=== PATIENT | female | born 1945 | race Asian ===

== ENCOUNTER 2020-09-12 10:14 | Inpatient (IN) | payer MEDICARE, MEDICAID ==
[~2020-09-12] VITALS: Ht 157.5 cm; Wt 56.7 kg
[~2020-09-12 10:14] MED LIST: MTV PO; VIT E PO; [UNRECOGNIZED DRUG - REMARK] PO
[2020-09-12 14:01] LABS: BASOPHILS % (AUTO) 0.9 % (0.0-2.0); EOSINOPHILS % (AUTO) 12.5 % (1.0-6.0); HEMATOCRIT 44.5 % (36-46); HEMOGLOBIN 15.4 g/dL (12.0-16.0); LYMPHOCYTES # (AUTO) 2.8 K/uL (1.0-4.8); LYMPHOCYTES % (AUTO) 34.7 % (22.0-44.0); MEAN CORPUSCULAR HEMOGLOBIN 32.9 pg (26.0-34.0); MEAN CORPUSCULAR HGB CONC 34.6 G/dL (31.0-37.0); MEAN CORPUSCULAR VOLUME 95 fL (80-100); MONOCYTES # (AUTO) 0.4 K/uL (0.1-1.0); MONOCYTES % (AUTO) 4.9 % (2.0-9.0); NEUTROPHILS # (AUTO) 3.8 K/uL (1.8-7.7); PLATELET COUNT (AUTO) 295 K/uL (150-450); RED BLOOD CELL COUNT(AUTO) 4.68 MIL/uL (4.00-5.20); RED CELL DISTRIBUTION WIDTH 12.5 % (11.5-14.5)
[2020-09-12 14:12] LABS: ANION GAP 7 mmol/L (8-16); CALCIUM, TOTAL 9.9 mg/dL (8.8-10.5); CARBON DIOXIDE 29 mmol/L (22-29); CHLORIDE 104 mmol/L (98-107); CREATININE 0.84 mg/dL (0.60-1.30); GLUCOSE,RANDOM 97 mg/dL (70-110); POTASSIUM 3.7 mmol/L (3.5-5.1); SODIUM SERUM 140 mmol/L (136-145); UREA NITROGEN, BLOOD 7 mg/dL (7-18)
[2020-09-12 14:13] LABS: GLOMERULAR FILTR. RATE CALC > 60 mL/min (>60)
[2020-09-12 14:17] LABS: ALANINE AMINOTRANSFERASE 35 U/L (12-78); ALBUMIN 4.3 g/dL (3.4-5.0); ALKALINE PHOSPHATASE 95 U/L (46-116); ASPARTATE AMINOTRANSFERASE 30 U/L (15-37); BILIRUBIN,TOTAL 0.8 mg/dL (0.1-1.0); TOTAL PROTEIN, SERUM 8.2 g/dL (6.4-8.2)
[2020-09-12] MEDS ORDERED: MAG HYDROX/AL HYDROX/SIMETH ES 30 ML SUSPENSION UDCUP PO PRN (15:30)
[2020-09-12] MEDS ORDERED: LOPERAMIDE HCL 2 MG CAPSULE PO PRN (15:30)
[2020-09-12] MEDS ORDERED: HydrOXYzine PAMOATE 50 MG CAPSULE PO PRN (15:30)
[2020-09-12] MEDS ORDERED: MAGNESIUM HYDROXIDE SUSPENSION 30 ML UDCUP PO PRN (15:30)
[2020-09-12] MEDS ORDERED: TUBERCULIN, PURIFIED PROTEIN DERIVATIVE 5 TU/0.1 ML SYRINGE ID ONE (15:30)
[2020-09-12] MEDS ORDERED: GuaiFENesin/D-METHORPHAN [SUGAR-FREE] 200-20MG/10 ML SYRUP UDCUP PO PRN (15:30)
[2020-09-12] MEDS ORDERED: PALIPERIDONE 1.5 MG ER TABLET PO PRN (15:30)
[2020-09-12] MEDS ORDERED: CYANOCOBALAMIN 1,000 MCG/ML VIAL IM ONE (15:30)
[2020-09-12] MEDS ORDERED: ACETAMINOPHEN 325 MG TABLET PO PRN (15:30)
[2020-09-12] MEDS ORDERED: ZOLPIDEM TARTRATE 10 MG TABLET PO PRN (15:30)
[2020-09-12] MEDS ORDERED: PROMETHAZINE HCL 25 MG TABLET PO PRN (15:30)
[2020-09-12] MEDS ORDERED: LORazepam 2 MG TABLET PO PRN (15:30)
[2020-09-12] MEDS ORDERED: PALIPERIDONE PALMITATE 234 MG/1.5 ML SYRINGE IM ONE (16:00)
[2020-09-12 16:03] LABS: COVID AG,FIA SOURCE NASAL SWAB
[2020-09-12] MEDS: PALIPERIDONE 3 MG ER TABLET PO SCH (21:00)
[2020-09-13 08:00] VITALS: BP 150/83
[2020-09-13 08:09] LABS: HEMOGLOBIN A1C 5.9 % (3.8-5.6)
[2020-09-13 08:17] LABS: CHOL/HDL RATIO 2.6 (3.9-5.7); FREE T4 (FREE THYROXINE) 1.36 ng/dL (0.76-1.46); THYROID STIMULATING HORMONE 0.39 uIU/mL (0.36-3.74)
[2020-09-13] MEDS: THIAMINE 100 MG TABLET PO SCH ×2 (09:48→16:09)
[2020-09-13] MEDS: MULTIVITAMINS WITH MINERALS, THERAPEUTIC TABLET PO SCH (09:48)
[2020-09-13] MEDS: FOLIC ACID 1 MG TABLET PO SCH (09:48)
[2020-09-13] MEDS: OMEGA-3/DHA/EPA/FISH OIL 1,000 MG CAPSULE PO SCH (09:48)
[2020-09-13] MEDS ORDERED: INFLUENZA VIRUS VACCINE QVS 2020-21 (6MO+)/PF 60 MCG/0.5 ML SYRINGE IM ONE (10:15)
[2020-09-13] MEDS ORDERED: PNEUMOCOCCAL VACCINE POLYVALENT 0.5 ML VIAL [PPSV23] IM ONE (10:15)
[2020-09-13 16:35] VITALS: BP 144/98
[2020-09-13] MEDS: PALIPERIDONE 3 MG ER TABLET PO SCH (20:12)
[2020-09-13] MEDS: MIRTAZAPINE 15 MG TABLET PO SCH (21:00)
[2020-09-14] MEDS: LURASIDONE HCL 20 MG TABLET PO SCH (06:37)
[2020-09-14 08:00] VITALS: BP 136/70
[2020-09-14] MEDS: THIAMINE 100 MG TABLET PO SCH ×2 (08:34→16:05)
[2020-09-14] MEDS: OMEGA-3/DHA/EPA/FISH OIL 1,000 MG CAPSULE PO SCH (08:34)
[2020-09-14] MEDS: FOLIC ACID 1 MG TABLET PO SCH (08:34)
[2020-09-14] MEDS: VALPROIC ACID 250 MG/5 ML SYRUP UDCUP PO SCH ×3 (08:34→16:05)
[2020-09-14] MEDS: MULTIVITAMINS WITH MINERALS, THERAPEUTIC TABLET PO SCH (08:34)
[2020-09-14] MEDS ORDERED: DEXTROSE 50%-WATER 25 GM/50 ML SYRINGE IVP PRN (14:15)
[2020-09-14 14:30] LABS: GLUCOMETER DEV NAME(LOC) 3E.C; GLUCOSE,POINT OF CARE 113 MG/DL (70-110)
[2020-09-14] MEDS: HYDROCHLOROTHIAZIDE 25 MG TABLET PO SCH (14:39)
[2020-09-14] MEDS: CLOPIDOGREL BISULFATE 75 MG TABLET PO SCH (14:40)
[2020-09-14 16:21] LABS: GLUCOMETER DEV NAME(LOC) 3E.C; GLUCOSE,POINT OF CARE 147 MG/DL (70-110)
[2020-09-14 16:24] VITALS: BP 128/76
[2020-09-14] MEDS: INSULIN LISPRO 100 UNITS/ML SQ PRN (16:51)
[2020-09-14] MEDS: MIRTAZAPINE 15 MG TABLET PO SCH (20:29)
[2020-09-14] MEDS: ATORVASTATIN CALCIUM 40 MG TABLET PO SCH (20:29)
[2020-09-14 20:45] LABS: GLUCOMETER DEV NAME(LOC) 3E.C; GLUCOSE,POINT OF CARE 115 MG/DL (70-110)
[2020-09-15 05:48] LABS: GLUCOMETER DEV NAME(LOC) 3E.I 2; GLUCOSE,POINT OF CARE 103 MG/DL (70-110)
[2020-09-15] MEDS: LURASIDONE HCL 20 MG TABLET PO SCH (06:38)
[2020-09-15 08:00] VITALS: BP 138/64
[2020-09-15] MEDS ORDERED: SitaGLIPtin PHOSPHATE 100 MG TABLET PO SCH (09:00)
[2020-09-15] MEDS ORDERED: FOLIC ACID 1 MG TABLET PO SCH (09:00)
[2020-09-15] MEDS: VALPROIC ACID 250 MG/5 ML SYRUP UDCUP PO SCH ×3 (10:40→16:39)
[2020-09-15] MEDS: HYDROCHLOROTHIAZIDE 25 MG TABLET PO SCH (10:41)
[2020-09-15] MEDS: LOSARTAN POTASSIUM 50 MG TABLET PO SCH (10:41)
[2020-09-15] MEDS: MULTIVITAMINS WITH MINERALS, THERAPEUTIC TABLET PO SCH (10:42)
[2020-09-15] MEDS: FOLIC ACID 1 MG TABLET PO SCH (10:42)
[2020-09-15] MEDS: OMEGA-3/DHA/EPA/FISH OIL 1,000 MG CAPSULE PO SCH (10:42)
[2020-09-15] MEDS: ASPIRIN 81 MG DR TABLET PO SCH (10:42)
[2020-09-15] MEDS: ERGOCALCIFEROL (VIT D2) 50,000 UNITS [1,250 MCG] CAPSULE PO SCH (10:43)
[2020-09-15] MEDS: THIAMINE 100 MG TABLET PO SCH ×2 (10:43→16:39)
[2020-09-15] MEDS: FUROSEMIDE 20 MG TABLET PO SCH (10:47)
[2020-09-15] MEDS: CLOPIDOGREL BISULFATE 75 MG TABLET PO SCH (10:48)
[2020-09-15 13:36] LABS: GLUCOMETER DEV NAME(LOC) 3E.I 2; GLUCOSE,POINT OF CARE 129 MG/DL (70-110)
[2020-09-15 16:10] VITALS: BP 100/58
[2020-09-15] MEDS: INSULIN LISPRO 100 UNITS/ML SQ PRN (17:14)
[2020-09-15] MEDS: MIRTAZAPINE 15 MG TABLET PO SCH (21:19)
[2020-09-15] MEDS: ATORVASTATIN CALCIUM 40 MG TABLET PO SCH (21:19)
[2020-09-15 21:36] LABS: GLUCOMETER DEV NAME(LOC) 3E.I 2; GLUCOSE,POINT OF CARE 129 MG/DL (70-110)
[2020-09-15 21:36] LABS: GLUCOMETER DEV NAME(LOC) 3E.I 2; GLUCOSE,POINT OF CARE 163 MG/DL (70-110)
[2020-09-16 05:45] LABS: GLUCOMETER DEV NAME(LOC) 3E.I 2; GLUCOSE,POINT OF CARE 97 MG/DL (70-110)
[2020-09-16] MEDS: LURASIDONE HCL 20 MG TABLET PO SCH (07:04)
[2020-09-16 09:00] VITALS: BP 107/81
[2020-09-16] MEDS ORDERED: PALIPERIDONE PALMITATE 156 MG/ML SYRINGE IM ONE (09:00)
[2020-09-16] MEDS: OMEGA-3/DHA/EPA/FISH OIL 1,000 MG CAPSULE PO SCH (10:30)
[2020-09-16] MEDS: MULTIVITAMINS WITH MINERALS, THERAPEUTIC TABLET PO SCH (10:30)
[2020-09-16] MEDS: LOSARTAN POTASSIUM 50 MG TABLET PO SCH (10:31)
[2020-09-16] MEDS: SitaGLIPtin PHOSPHATE 50 MG TABLET PO SCH (10:31)
[2020-09-16] MEDS: ASPIRIN 81 MG DR TABLET PO SCH (10:31)
[2020-09-16] MEDS: THIAMINE 100 MG TABLET PO SCH ×2 (10:31→16:59)
[2020-09-16] MEDS: FOLIC ACID 1 MG TABLET PO SCH (10:31)
[2020-09-16] MEDS: HYDROCHLOROTHIAZIDE 25 MG TABLET PO SCH (10:31)
[2020-09-16] MEDS: CLOPIDOGREL BISULFATE 75 MG TABLET PO SCH (10:32)
[2020-09-16] MEDS: FUROSEMIDE 20 MG TABLET PO SCH (10:32)
[2020-09-16] MEDS: VALPROIC ACID 250 MG/5 ML SYRUP UDCUP PO SCH ×3 (10:32→16:59)
[2020-09-16 11:55] LABS: GLUCOMETER DEV NAME(LOC) 3E.I 2; GLUCOSE,POINT OF CARE 115 MG/DL (70-110)
[2020-09-16 16:00] VITALS: BP 137/82
[2020-09-16 17:30] LABS: GLUCOMETER DEV NAME(LOC) 3E.I 2; GLUCOSE,POINT OF CARE 102 MG/DL (70-110)
[2020-09-16] MEDS: MIRTAZAPINE 15 MG TABLET PO SCH (21:02)
[2020-09-16] MEDS: ATORVASTATIN CALCIUM 40 MG TABLET PO SCH (21:02)
[2020-09-16 21:26] LABS: GLUCOMETER DEV NAME(LOC) 3E.I 2; GLUCOSE,POINT OF CARE 134 MG/DL (70-110)
[2020-09-17 06:03] LABS: GLUCOMETER DEV NAME(LOC) 3E.I 2; GLUCOSE,POINT OF CARE 114 MG/DL (70-110)
[2020-09-17] MEDS: LURASIDONE HCL 40 MG TABLET PO SCH (06:31)
[2020-09-17] MEDS: THIAMINE 100 MG TABLET PO SCH ×2 (09:27→16:31)
[2020-09-17] MEDS: VALPROIC ACID 250 MG/5 ML SYRUP UDCUP PO SCH ×3 (09:27→16:32)
[2020-09-17] MEDS: MULTIVITAMINS WITH MINERALS, THERAPEUTIC TABLET PO SCH (09:27)
[2020-09-17] MEDS: FUROSEMIDE 20 MG TABLET PO SCH (09:28)
[2020-09-17] MEDS: SitaGLIPtin PHOSPHATE 50 MG TABLET PO SCH (09:28)
[2020-09-17] MEDS: ASPIRIN 81 MG DR TABLET PO SCH (09:28)
[2020-09-17] MEDS: CLOPIDOGREL BISULFATE 75 MG TABLET PO SCH (09:28)
[2020-09-17] MEDS: FOLIC ACID 1 MG TABLET PO SCH (09:28)
[2020-09-17] MEDS: HYDROCHLOROTHIAZIDE 25 MG TABLET PO SCH (09:28)
[2020-09-17] MEDS: OMEGA-3/DHA/EPA/FISH OIL 1,000 MG CAPSULE PO SCH (09:28)
[2020-09-17] MEDS: LOSARTAN POTASSIUM 50 MG TABLET PO SCH (09:28)
[2020-09-17 10:40] VITALS: BP 130/78
[2020-09-17 12:15] LABS: GLUCOMETER DEV NAME(LOC) 3E.I 2; GLUCOSE,POINT OF CARE 119 MG/DL (70-110)
[2020-09-17 16:33] LABS: GLUCOMETER DEV NAME(LOC) 3E.I 2; GLUCOSE,POINT OF CARE 89 MG/DL (70-110)
[2020-09-17 17:58] VITALS: BP 105/64
[2020-09-17] MEDS: MIRTAZAPINE 15 MG TABLET PO SCH (20:31)
[2020-09-17] MEDS: ATORVASTATIN CALCIUM 40 MG TABLET PO SCH (20:31)
[2020-09-17 20:45] LABS: GLUCOMETER DEV NAME(LOC) 3E.I 2; GLUCOSE,POINT OF CARE 115 MG/DL (70-110)
[2020-09-18 05:46] LABS: GLUCOMETER DEV NAME(LOC) 3E.I 2; GLUCOSE,POINT OF CARE 136 MG/DL (70-110)
[2020-09-18] MEDS: LURASIDONE HCL 40 MG TABLET PO SCH (06:32)
[2020-09-18 09:02] VITALS: BP 118/79
[2020-09-18] MEDS: FOLIC ACID 1 MG TABLET PO SCH (10:21)
[2020-09-18] MEDS: MULTIVITAMINS WITH MINERALS, THERAPEUTIC TABLET PO SCH (10:21)
[2020-09-18] MEDS: FUROSEMIDE 20 MG TABLET PO SCH (10:21)
[2020-09-18] MEDS: OMEGA-3/DHA/EPA/FISH OIL 1,000 MG CAPSULE PO SCH (10:21)
[2020-09-18] MEDS: THIAMINE 100 MG TABLET PO SCH ×2 (10:22→17:02)
[2020-09-18] MEDS: ASPIRIN 81 MG DR TABLET PO SCH (10:22)
[2020-09-18] MEDS: HYDROCHLOROTHIAZIDE 25 MG TABLET PO SCH (10:22)
[2020-09-18] MEDS: LOSARTAN POTASSIUM 50 MG TABLET PO SCH (10:23)
[2020-09-18] MEDS: SitaGLIPtin PHOSPHATE 50 MG TABLET PO SCH (10:23)
[2020-09-18] MEDS: CLOPIDOGREL BISULFATE 75 MG TABLET PO SCH (10:24)
[2020-09-18] MEDS: VALPROIC ACID 250 MG/5 ML SYRUP UDCUP PO SCH ×3 (10:25→17:02)
[2020-09-18] MEDS: INSULIN LISPRO 100 UNITS/ML SQ PRN (11:37)
[2020-09-18 11:45] LABS: GLUCOMETER DEV NAME(LOC) 3E.I 2; GLUCOSE,POINT OF CARE 107 MG/DL (70-110)
[2020-09-18 16:00] VITALS: BP 97/59
[2020-09-18 17:01] LABS: GLUCOMETER DEV NAME(LOC) 3E.I 2; GLUCOSE,POINT OF CARE 116 MG/DL (70-110)
[2020-09-18] MEDS: ATORVASTATIN CALCIUM 40 MG TABLET PO SCH (20:19)
[2020-09-18] MEDS: MIRTAZAPINE 15 MG TABLET PO SCH (20:19)
[2020-09-18 22:02] LABS: GLUCOMETER DEV NAME(LOC) 3E.I 2; GLUCOSE,POINT OF CARE 116 MG/DL (70-110)
[2020-09-19 06:02] LABS: GLUCOMETER DEV NAME(LOC) 3E.I 2; GLUCOSE,POINT OF CARE 102 MG/DL (70-110)
[2020-09-19] MEDS: LURASIDONE HCL 40 MG TABLET PO SCH (06:52)
[2020-09-19 08:00] VITALS: BP 147/84
[2020-09-19] MEDS: ASPIRIN 81 MG DR TABLET PO SCH (09:11)
[2020-09-19] MEDS: FUROSEMIDE 20 MG TABLET PO SCH (09:11)
[2020-09-19] MEDS: SitaGLIPtin PHOSPHATE 25 MG TABLET PO SCH (09:11)
[2020-09-19] MEDS: MULTIVITAMINS WITH MINERALS, THERAPEUTIC TABLET PO SCH (09:11)
[2020-09-19] MEDS: OMEGA-3/DHA/EPA/FISH OIL 1,000 MG CAPSULE PO SCH (09:11)
[2020-09-19] MEDS: VALPROIC ACID 250 MG/5 ML SYRUP UDCUP PO SCH ×3 (09:11→16:32)
[2020-09-19] MEDS: CLOPIDOGREL BISULFATE 75 MG TABLET PO SCH (09:11)
[2020-09-19] MEDS: LOSARTAN POTASSIUM 25 MG TABLET PO SCH (09:11)
[2020-09-19] MEDS: THIAMINE 100 MG TABLET PO SCH ×2 (09:12→16:31)
[2020-09-19] MEDS: FOLIC ACID 1 MG TABLET PO SCH (09:18)
[2020-09-19 11:26] LABS: GLUCOMETER DEV NAME(LOC) 3E.I 2; GLUCOSE,POINT OF CARE 93 MG/DL (70-110)
[2020-09-19] MEDS: INSULIN LISPRO 100 UNITS/ML SQ PRN (12:49)
[2020-09-19 16:00] VITALS: BP 104/64
[2020-09-19] MEDS: MIRTAZAPINE 15 MG TABLET PO SCH (20:28)
[2020-09-19] MEDS: ATORVASTATIN CALCIUM 40 MG TABLET PO SCH (20:28)
[2020-09-19 20:46] LABS: GLUCOMETER DEV NAME(LOC) 3E.I 2; GLUCOSE,POINT OF CARE 133 MG/DL (70-110)
[2020-09-20 06:25] LABS: GLUCOMETER DEV NAME(LOC) 3E.I 2; GLUCOSE,POINT OF CARE 110 MG/DL (70-110)
[2020-09-20] MEDS: LURASIDONE HCL 60 MG TABLET PO SCH (07:03)
[2020-09-20 08:00] VITALS: BP 123/67
[2020-09-20] MEDS: THIAMINE 100 MG TABLET PO SCH ×2 (11:23→16:34)
[2020-09-20] MEDS: SitaGLIPtin PHOSPHATE 25 MG TABLET PO SCH (11:23)
[2020-09-20] MEDS: ASPIRIN 81 MG DR TABLET PO SCH (11:23)
[2020-09-20] MEDS: OMEGA-3/DHA/EPA/FISH OIL 1,000 MG CAPSULE PO SCH (11:23)
[2020-09-20] MEDS: FUROSEMIDE 20 MG TABLET PO SCH (11:23)
[2020-09-20] MEDS: VALPROIC ACID 250 MG/5 ML SYRUP UDCUP PO SCH ×3 (11:24→16:34)
[2020-09-20] MEDS: FOLIC ACID 1 MG TABLET PO SCH (11:24)
[2020-09-20] MEDS: MULTIVITAMINS WITH MINERALS, THERAPEUTIC TABLET PO SCH (11:24)
[2020-09-20] MEDS: LOSARTAN POTASSIUM 25 MG TABLET PO SCH (11:24)
[2020-09-20] MEDS: CLOPIDOGREL BISULFATE 75 MG TABLET PO SCH (11:24)
[2020-09-20 11:42] LABS: GLUCOMETER DEV NAME(LOC) 3E.I 2; GLUCOSE,POINT OF CARE 131 MG/DL (70-110)
[2020-09-20 16:00] VITALS: BP 105/68
[2020-09-20] MEDS: INSULIN LISPRO 100 UNITS/ML SQ PRN (16:50)
[2020-09-20 16:54] LABS: GLUCOMETER DEV NAME(LOC) 3E.I 2; GLUCOSE,POINT OF CARE 151 MG/DL (70-110)
[2020-09-20] MEDS: ATORVASTATIN CALCIUM 40 MG TABLET PO SCH (21:15)
[2020-09-20] MEDS: MIRTAZAPINE 15 MG TABLET PO SCH (21:16)
[2020-09-20 21:34] LABS: GLUCOMETER DEV NAME(LOC) 3E.I 2; GLUCOSE,POINT OF CARE 100 MG/DL (70-110)
[2020-09-21 00:37] VITALS: BP 141/84
[2020-09-21 05:23] LABS: GLUCOMETER DEV NAME(LOC) 3E.I 2; GLUCOSE,POINT OF CARE 86 MG/DL (70-110)
[2020-09-21] MEDS: LURASIDONE HCL 60 MG TABLET PO SCH (07:03)
[2020-09-21] MEDS: INSULIN LISPRO 100 UNITS/ML SQ PRN ×2 (07:30→11:24)
[2020-09-21 08:00] VITALS: BP 110/70
[2020-09-21] MEDS: MULTIVITAMINS WITH MINERALS, THERAPEUTIC TABLET PO SCH (08:29)
[2020-09-21] MEDS: OMEGA-3/DHA/EPA/FISH OIL 1,000 MG CAPSULE PO SCH (08:30)
[2020-09-21] MEDS: THIAMINE 100 MG TABLET PO SCH ×2 (08:30→16:38)
[2020-09-21] MEDS: ASPIRIN 81 MG DR TABLET PO SCH (08:30)
[2020-09-21] MEDS: FOLIC ACID 1 MG TABLET PO SCH (08:30)
[2020-09-21] MEDS: SitaGLIPtin PHOSPHATE 25 MG TABLET PO SCH (08:31)
[2020-09-21] MEDS: CLOPIDOGREL BISULFATE 75 MG TABLET PO SCH (08:31)
[2020-09-21] MEDS: FUROSEMIDE 20 MG TABLET PO SCH (08:31)
[2020-09-21] MEDS: LOSARTAN POTASSIUM 25 MG TABLET PO SCH (08:32)
[2020-09-21] MEDS: VALPROIC ACID 250 MG/5 ML SYRUP UDCUP PO SCH ×3 (08:33→16:38)
[2020-09-21 11:33] LABS: GLUCOMETER DEV NAME(LOC) 3E.I 2; GLUCOSE,POINT OF CARE 88 MG/DL (70-110)
[2020-09-21 16:54] LABS: GLUCOMETER DEV NAME(LOC) 3E.I 2; GLUCOSE,POINT OF CARE 137 MG/DL (70-110)
[2020-09-21 18:12] VITALS: BP 156/68
[2020-09-21] MEDS: ATORVASTATIN CALCIUM 40 MG TABLET PO SCH (20:49)
[2020-09-21] MEDS: MIRTAZAPINE 15 MG TABLET PO SCH (20:49)
[2020-09-21 21:18] LABS: GLUCOMETER DEV NAME(LOC) 3E.I 2; GLUCOSE,POINT OF CARE 112 MG/DL (70-110)
[2020-09-22 05:33] LABS: GLUCOMETER DEV NAME(LOC) 3E.I 2; GLUCOSE,POINT OF CARE 93 MG/DL (70-110)
[2020-09-22] MEDS: LURASIDONE HCL 80 MG TABLET PO SCH (06:36)
[2020-09-22 09:25] VITALS: BP 120/70
[2020-09-22] MEDS: ERGOCALCIFEROL (VIT D2) 50,000 UNITS [1,250 MCG] CAPSULE PO SCH (11:00)
[2020-09-22] MEDS: CLOPIDOGREL BISULFATE 75 MG TABLET PO SCH (11:00)
[2020-09-22] MEDS: LOSARTAN POTASSIUM 25 MG TABLET PO SCH (11:00)
[2020-09-22] MEDS: FUROSEMIDE 20 MG TABLET PO SCH (11:02)
[2020-09-22] MEDS: FOLIC ACID 1 MG TABLET PO SCH (11:02)
[2020-09-22] MEDS: VALPROIC ACID 250 MG/5 ML SYRUP UDCUP PO SCH ×3 (11:02→16:49)
[2020-09-22] MEDS: OMEGA-3/DHA/EPA/FISH OIL 1,000 MG CAPSULE PO SCH (11:03)
[2020-09-22] MEDS: ASPIRIN 81 MG DR TABLET PO SCH (11:03)
[2020-09-22] MEDS: MULTIVITAMINS WITH MINERALS, THERAPEUTIC TABLET PO SCH (11:04)
[2020-09-22 12:05] LABS: GLUCOMETER DEV NAME(LOC) 3E.I 2; GLUCOSE,POINT OF CARE 101 MG/DL (70-110)
[2020-09-22 16:00] VITALS: BP 124/74
[2020-09-22 17:10] LABS: GLUCOMETER DEV NAME(LOC) 3E.I 2; GLUCOSE,POINT OF CARE 87 MG/DL (70-110)
[2020-09-22] MEDS: ATORVASTATIN CALCIUM 40 MG TABLET PO SCH (21:31)
[2020-09-22] MEDS: MIRTAZAPINE 15 MG TABLET PO SCH (21:31)
[2020-09-22 21:46] LABS: GLUCOMETER DEV NAME(LOC) 3E.I 2; GLUCOSE,POINT OF CARE 99 MG/DL (70-110)
[2020-09-23 05:47] LABS: GLUCOMETER DEV NAME(LOC) 3E.I 2; GLUCOSE,POINT OF CARE 80 MG/DL (70-110)
[2020-09-23] MEDS: LURASIDONE HCL 80 MG TABLET PO SCH (06:59)
[2020-09-23 08:00] VITALS: BP 118/72
[2020-09-23] MEDS: CLOPIDOGREL BISULFATE 75 MG TABLET PO SCH (09:59)
[2020-09-23] MEDS: VALPROIC ACID 250 MG/5 ML SYRUP UDCUP PO SCH ×3 (09:59→16:18)
[2020-09-23] MEDS: OMEGA-3/DHA/EPA/FISH OIL 1,000 MG CAPSULE PO SCH (09:59)
[2020-09-23] MEDS: LOSARTAN POTASSIUM 25 MG TABLET PO SCH (09:59)
[2020-09-23] MEDS: FUROSEMIDE 20 MG TABLET PO SCH (09:59)
[2020-09-23] MEDS: ASPIRIN 81 MG DR TABLET PO SCH (09:59)
[2020-09-23] MEDS: MULTIVITAMINS WITH MINERALS, THERAPEUTIC TABLET PO SCH (09:59)
[2020-09-23 11:40] LABS: GLUCOMETER DEV NAME(LOC) 3E.I 2; GLUCOSE,POINT OF CARE 114 MG/DL (70-110)
[2020-09-23] MEDS: INSULIN LISPRO 100 UNITS/ML SQ PRN (11:58)
[2020-09-23 16:00] VITALS: BP 125/75
[2020-09-23 16:30] LABS: GLUCOMETER DEV NAME(LOC) 3E.I 2; GLUCOSE,POINT OF CARE 109 MG/DL (70-110)
[2020-09-23] MEDS: MIRTAZAPINE 15 MG TABLET PO SCH (21:21)
[2020-09-23] MEDS: ATORVASTATIN CALCIUM 40 MG TABLET PO SCH (21:21)
[2020-09-23 21:38] LABS: GLUCOMETER DEV NAME(LOC) 3E.I 2; GLUCOSE,POINT OF CARE 120 MG/DL (70-110)
[2020-09-24 06:31] LABS: GLUCOMETER DEV NAME(LOC) 3E.I 2; GLUCOSE,POINT OF CARE 80 MG/DL (70-110)
[2020-09-24] MEDS: LURASIDONE HCL 80 MG TABLET PO SCH (06:40)
[2020-09-24 08:49] VITALS: BP 101/63
[2020-09-24] MEDS: VALPROIC ACID 250 MG/5 ML SYRUP UDCUP PO SCH ×3 (09:27→17:02)
[2020-09-24] MEDS: FUROSEMIDE 20 MG TABLET PO SCH (09:28)
[2020-09-24] MEDS: ASPIRIN 81 MG DR TABLET PO SCH (09:28)
[2020-09-24] MEDS: OMEGA-3/DHA/EPA/FISH OIL 1,000 MG CAPSULE PO SCH (09:28)
[2020-09-24] MEDS: CLOPIDOGREL BISULFATE 75 MG TABLET PO SCH (09:28)
[2020-09-24] MEDS: MULTIVITAMINS WITH MINERALS, THERAPEUTIC TABLET PO SCH (09:28)
[2020-09-24] MEDS: LOSARTAN POTASSIUM 25 MG TABLET PO SCH (09:28)
[2020-09-24 11:15] LABS: GLUCOMETER DEV NAME(LOC) 3E.I 2; GLUCOSE,POINT OF CARE 148 MG/DL (70-110)
[2020-09-24] MEDS: INSULIN LISPRO 100 UNITS/ML SQ PRN (11:37)
[2020-09-24 16:00] VITALS: BP 116/71
[2020-09-24 16:37] LABS: GLUCOMETER DEV NAME(LOC) 3E.I 2; GLUCOSE,POINT OF CARE 116 MG/DL (70-110)
[2020-09-24] MEDS: ATORVASTATIN CALCIUM 40 MG TABLET PO SCH (20:28)
[2020-09-24] MEDS: MIRTAZAPINE 15 MG TABLET PO SCH (20:28)
[2020-09-24 20:49] LABS: GLUCOMETER DEV NAME(LOC) 3E.I 2; GLUCOSE,POINT OF CARE 128 MG/DL (70-110)
[2020-09-25 05:23] LABS: GLUCOMETER DEV NAME(LOC) 3E.I 2; GLUCOSE,POINT OF CARE 73 MG/DL (70-110)
[2020-09-25] MEDS: LURASIDONE HCL 80 MG TABLET PO SCH (07:00)
[2020-09-25] MEDS: INSULIN LISPRO 100 UNITS/ML SQ PRN ×2 (07:02→20:46)
[2020-09-25] MEDS: OMEGA-3/DHA/EPA/FISH OIL 1,000 MG CAPSULE PO SCH (08:19)
[2020-09-25] MEDS: LOSARTAN POTASSIUM 25 MG TABLET PO SCH (08:19)
[2020-09-25] MEDS: VALPROIC ACID 250 MG/5 ML SYRUP UDCUP PO SCH ×3 (08:19→16:08)
[2020-09-25] MEDS: MULTIVITAMINS WITH MINERALS, THERAPEUTIC TABLET PO SCH (08:19)
[2020-09-25] MEDS: CLOPIDOGREL BISULFATE 75 MG TABLET PO SCH (08:19)
[2020-09-25] MEDS: FUROSEMIDE 20 MG TABLET PO SCH (08:19)
[2020-09-25] MEDS: ASPIRIN 81 MG DR TABLET PO SCH (08:20)
[2020-09-25 09:03] VITALS: BP 141/77
[2020-09-25 11:11] LABS: GLUCOMETER DEV NAME(LOC) 3E.I 2; GLUCOSE,POINT OF CARE 83 MG/DL (70-110)
[2020-09-25 16:00] VITALS: BP 122/67
[2020-09-25 17:25] LABS: GLUCOMETER DEV NAME(LOC) 3E.I 2; GLUCOSE,POINT OF CARE 98 MG/DL (70-110)
[2020-09-25] MEDS ORDERED: LORazepam 0.5 MG TABLET PO PRN (20:15)
[2020-09-25] MEDS ORDERED: ZOLPIDEM TARTRATE 5 MG TABLET PO PRN (20:15)
[2020-09-25] MEDS: ATORVASTATIN CALCIUM 40 MG TABLET PO SCH (20:26)
[2020-09-25] MEDS: MIRTAZAPINE 15 MG TABLET PO SCH (20:26)
[2020-09-25 20:56] LABS: GLUCOMETER DEV NAME(LOC) 3E.I 2; GLUCOSE,POINT OF CARE 145 MG/DL (70-110)
[2020-09-26 05:42] LABS: GLUCOMETER DEV NAME(LOC) 3E.I 2; GLUCOSE,POINT OF CARE 79 MG/DL (70-110)
[2020-09-26] MEDS: LURASIDONE HCL 80 MG TABLET PO SCH (06:35)
[2020-09-26 08:00] VITALS: BP 137/70
[2020-09-26] MEDS: MULTIVITAMINS WITH MINERALS, THERAPEUTIC TABLET PO SCH (09:03)
[2020-09-26] MEDS: ASPIRIN 81 MG DR TABLET PO SCH (09:03)
[2020-09-26] MEDS: VALPROIC ACID 250 MG/5 ML SYRUP UDCUP PO SCH ×3 (09:04→16:12)
[2020-09-26] MEDS: LOSARTAN POTASSIUM 25 MG TABLET PO SCH (09:04)
[2020-09-26] MEDS: CLOPIDOGREL BISULFATE 75 MG TABLET PO SCH (09:04)
[2020-09-26] MEDS: FUROSEMIDE 20 MG TABLET PO SCH (09:04)
[2020-09-26] MEDS: OMEGA-3/DHA/EPA/FISH OIL 1,000 MG CAPSULE PO SCH (09:04)
[2020-09-26] MEDS: INSULIN LISPRO 100 UNITS/ML SQ PRN (12:16)
[2020-09-26 12:23] LABS: GLUCOMETER DEV NAME(LOC) 3E.I 2; GLUCOSE,POINT OF CARE 90 MG/DL (70-110)
[2020-09-26 16:00] VITALS: BP 109/66
[2020-09-26 16:25] LABS: GLUCOMETER DEV NAME(LOC) 3E.I 2; GLUCOSE,POINT OF CARE 76 MG/DL (70-110)
[2020-09-26 20:28] LABS: GLUCOMETER DEV NAME(LOC) 3E.I 2; GLUCOSE,POINT OF CARE 120 MG/DL (70-110)
[2020-09-26] MEDS: ATORVASTATIN CALCIUM 40 MG TABLET PO SCH (20:34)
[2020-09-26] MEDS: MIRTAZAPINE 15 MG TABLET PO SCH (20:34)
[2020-09-27 06:41] LABS: GLUCOMETER DEV NAME(LOC) 3E.I 2; GLUCOSE,POINT OF CARE 85 MG/DL (70-110)
[2020-09-27] MEDS: LURASIDONE HCL 80 MG TABLET PO SCH (06:50)
[2020-09-27 08:00] VITALS: BP 113/79
[2020-09-27] MEDS: LOSARTAN POTASSIUM 25 MG TABLET PO SCH (09:40)
[2020-09-27] MEDS: ASPIRIN 81 MG DR TABLET PO SCH (09:40)
[2020-09-27] MEDS: OMEGA-3/DHA/EPA/FISH OIL 1,000 MG CAPSULE PO SCH (09:40)
[2020-09-27] MEDS: VALPROIC ACID 250 MG/5 ML SYRUP UDCUP PO SCH ×3 (09:40→16:21)
[2020-09-27] MEDS: CLOPIDOGREL BISULFATE 75 MG TABLET PO SCH (09:40)
[2020-09-27] MEDS: MULTIVITAMINS WITH MINERALS, THERAPEUTIC TABLET PO SCH (09:40)
[2020-09-27] MEDS: FUROSEMIDE 20 MG TABLET PO SCH (09:40)
[2020-09-27 11:47] LABS: GLUCOMETER DEV NAME(LOC) 3E.I 2; GLUCOSE,POINT OF CARE 93 MG/DL (70-110)
[2020-09-27] MEDS: INSULIN LISPRO 100 UNITS/ML SQ PRN (13:57)
[2020-09-27 16:10] VITALS: BP 104/57
[2020-09-27 17:26] LABS: GLUCOMETER DEV NAME(LOC) 3E.I 2; GLUCOSE,POINT OF CARE 129 MG/DL (70-110)
[2020-09-27] MEDS: ATORVASTATIN CALCIUM 40 MG TABLET PO SCH (20:44)
[2020-09-27] MEDS: MIRTAZAPINE 15 MG TABLET PO SCH (20:44)
[2020-09-27 21:01] LABS: GLUCOMETER DEV NAME(LOC) 3E.I 2; GLUCOSE,POINT OF CARE 134 MG/DL (70-110)
[2020-09-28 06:32] LABS: GLUCOMETER DEV NAME(LOC) 3E.I 2; GLUCOSE,POINT OF CARE 84 MG/DL (70-110)
[2020-09-28] MEDS: LURASIDONE HCL 80 MG TABLET PO SCH (06:43)
[2020-09-28] MEDS: ASPIRIN 81 MG DR TABLET PO SCH (09:09)
[2020-09-28] MEDS: FUROSEMIDE 20 MG TABLET PO SCH (09:09)
[2020-09-28] MEDS: VALPROIC ACID 250 MG/5 ML SYRUP UDCUP PO SCH ×3 (09:09→16:29)
[2020-09-28] MEDS: OMEGA-3/DHA/EPA/FISH OIL 1,000 MG CAPSULE PO SCH (09:09)
[2020-09-28] MEDS: MULTIVITAMINS WITH MINERALS, THERAPEUTIC TABLET PO SCH (09:09)
[2020-09-28] MEDS: LOSARTAN POTASSIUM 25 MG TABLET PO SCH (09:10)
[2020-09-28] MEDS: CLOPIDOGREL BISULFATE 75 MG TABLET PO SCH (09:10)
[2020-09-28 09:56] VITALS: BP 115/58
[2020-09-28 11:58] LABS: GLUCOMETER DEV NAME(LOC) 3E.I 2; GLUCOSE,POINT OF CARE 81 MG/DL (70-110)
[2020-09-28] MEDS: INSULIN LISPRO 100 UNITS/ML SQ PRN (13:15)
[2020-09-28 16:10] VITALS: BP 109/60
[2020-09-28 16:45] LABS: GLUCOMETER DEV NAME(LOC) 3E.I 2; GLUCOSE,POINT OF CARE 90 MG/DL (70-110)
[2020-09-28 17:51] LABS: COVID AG,FIA SOURCE NASOPHARYNGEAL
[2020-09-28] MEDS: MIRTAZAPINE 15 MG TABLET PO SCH (20:25)
[2020-09-28] MEDS: ATORVASTATIN CALCIUM 40 MG TABLET PO SCH (20:25)
[2020-09-28 20:41] LABS: GLUCOMETER DEV NAME(LOC) 3E.I 2; GLUCOSE,POINT OF CARE 134 MG/DL (70-110)
[2020-09-29 05:30] LABS: GLUCOMETER DEV NAME(LOC) 3E.I 2; GLUCOSE,POINT OF CARE 74 MG/DL (70-110)
[2020-09-29] MEDS: LURASIDONE HCL 80 MG TABLET PO SCH (06:38)
[2020-09-29 08:00] VITALS: BP 102/53
[2020-09-29] MEDS: OMEGA-3/DHA/EPA/FISH OIL 1,000 MG CAPSULE PO SCH (08:40)
[2020-09-29] MEDS: MULTIVITAMINS WITH MINERALS, THERAPEUTIC TABLET PO SCH (08:40)
[2020-09-29] MEDS: ASPIRIN 81 MG DR TABLET PO SCH (08:40)
[2020-09-29] MEDS: FUROSEMIDE 20 MG TABLET PO SCH (08:41)
[2020-09-29] MEDS: VALPROIC ACID 250 MG/5 ML SYRUP UDCUP PO SCH ×3 (08:41→16:47)
[2020-09-29] MEDS: CLOPIDOGREL BISULFATE 75 MG TABLET PO SCH (08:42)
[2020-09-29] MEDS: ERGOCALCIFEROL (VIT D2) 50,000 UNITS [1,250 MCG] CAPSULE PO SCH (08:42)
[2020-09-29] MEDS: LOSARTAN POTASSIUM 25 MG TABLET PO SCH (09:00)
[2020-09-29 11:28] LABS: GLUCOMETER DEV NAME(LOC) 3E.I 2; GLUCOSE,POINT OF CARE 74 MG/DL (70-110)
[2020-09-29] MEDS: INSULIN LISPRO 100 UNITS/ML SQ PRN ×2 (12:12→13:31)
[2020-09-29 14:49] LABS: APPEARANCE,URINE CLEAR (CLEAR); BILIRUBIN,URINE NEGATIVE (NEGATIVE); GLUCOSE, URINE (UA) NEGATIVE (NEGATIVE); KETONES,URINE NEGATIVE (NEGATIVE); LEUKOCYTE ESTERASE ,URINE NEGATIVE (NEGATIVE); NITRATE,URINE NEGATIVE (NEGATIVE); OCCULT BLOOD,URINE NEGATIVE (NEGATIVE); PROTEIN,URINE NEGATIVE (NEGATIVE); UROBILINOGEN,URINE 0.2 mg/dL (<=1.0)
[2020-09-29 16:00] VITALS: BP 111/70
[2020-09-29 17:15] LABS: GLUCOMETER DEV NAME(LOC) 3E.I 2; GLUCOSE,POINT OF CARE 103 MG/DL (70-110)
[2020-09-29] MEDS ORDERED: OMEG-135 PO (18:43)
[2020-09-29] MEDS ORDERED: LURA80TA2 PO (18:43)
[2020-09-29] MEDS ORDERED: VALP250S23 PO (18:43)
[2020-09-29] MEDS ORDERED: MIRT-89 PO (18:43)
[2020-09-29] MEDS: ATORVASTATIN CALCIUM 40 MG TABLET PO SCH (20:42)
[2020-09-29] MEDS: MIRTAZAPINE 15 MG TABLET PO SCH (20:42)
[2020-09-29 20:57] LABS: GLUCOMETER DEV NAME(LOC) 3E.I 2; GLUCOSE,POINT OF CARE 85 MG/DL (70-110)
[2020-09-30 06:03] LABS: GLUCOMETER DEV NAME(LOC) 3E.I 2; GLUCOSE,POINT OF CARE 80 MG/DL (70-110)
[2020-09-30] MEDS: LURASIDONE HCL 80 MG TABLET PO SCH (06:47)
[2020-09-30] MEDS: INSULIN LISPRO 100 UNITS/ML SQ PRN (06:47)
[2020-09-30 07:09] LABS: BASOPHILS % (AUTO) 0.8 % (0.0-2.0); HEMOGLOBIN 14.4 g/dL (12.0-16.0); LYMPHOCYTES # (AUTO) 2.1 K/uL (1.0-4.8); LYMPHOCYTES % (AUTO) 27.6 % (22.0-44.0); MEAN CORPUSCULAR HEMOGLOBIN 32.4 pg (26.0-34.0); MEAN CORPUSCULAR HGB CONC 33.4 G/dL (31.0-37.0); MEAN CORPUSCULAR VOLUME 97 fL (80-100); MONOCYTES # (AUTO) 0.6 K/uL (0.1-1.0); MONOCYTES % (AUTO) 7.9 % (2.0-9.0); NEUTROPHILS # (AUTO) 3.3 K/uL (1.8-7.7); PLATELET COUNT (AUTO) 305 K/uL (150-450); RED BLOOD CELL COUNT(AUTO) 4.44 MIL/uL (4.00-5.20); RED CELL DISTRIBUTION WIDTH 12.9 % (11.5-14.5)
[2020-09-30 07:15] LABS: EOSINOPHILS % (AUTO) 20.7 % (1.0-6.0)
[2020-09-30 07:42] LABS: ALBUMIN 3.3 g/dL (3.4-5.0); BILIRUBIN,TOTAL 0.3 mg/dL (0.1-1.0); CALCIUM, TOTAL 8.7 mg/dL (8.8-10.5); CREATININE 1.01 mg/dL (0.60-1.30); POTASSIUM 4.4 mmol/L (3.5-5.1); TOTAL PROTEIN, SERUM 6.6 g/dL (6.4-8.2)
[2020-09-30] MEDS ORDERED: LOSARTAN POTASSIUM 25 MG TABLET PO SCH (09:00)
[2020-09-30] MEDS: CLOPIDOGREL BISULFATE 75 MG TABLET PO SCH (09:04)
[2020-09-30] MEDS: VALPROIC ACID 250 MG/5 ML SYRUP UDCUP PO SCH ×2 (09:04→12:41)
[2020-09-30] MEDS: ASPIRIN 81 MG DR TABLET PO SCH (09:05)
[2020-09-30] MEDS: MULTIVITAMINS WITH MINERALS, THERAPEUTIC TABLET PO SCH (09:05)
[2020-09-30] MEDS: OMEGA-3/DHA/EPA/FISH OIL 1,000 MG CAPSULE PO SCH (09:05)
[2020-09-30] MEDS: FUROSEMIDE 20 MG TABLET PO SCH (09:06)
[2020-09-30] MEDS ORDERED: ASPI-728 PO (10:15)
[2020-09-30] MEDS ORDERED: MULT-1239 PO (10:15)
[2020-09-30] MEDS ORDERED: ATOR40TA28 PO (10:15)
[2020-09-30] MEDS ORDERED: FURO20 PO (10:15)
[2020-09-30] MEDS ORDERED: LOSA25TA21 PO (10:15)
[2020-09-30] MEDS ORDERED: ERGO500054 PO (10:15)
[2020-09-30] MEDS ORDERED: CLOP-31 PO (10:15)
[2020-09-30 11:10] LABS: GLUCOMETER DEV NAME(LOC) 3E.I 2; GLUCOSE,POINT OF CARE 97 MG/DL (70-110)
[2020-09-30 11:24] VITALS: BP 113/73
== END 2020-09-30 13:45 | disposition home or self-care (01) | DRG 750 ==
LOC: EMS 10:14 → 3EI 15:26 → 3EC 15:27 → 3EI 09-14 22:53
PROVIDERS: ADMIT Psychiatry & Neurology Psychiatry; ATTEND Psychiatry & Neurology Psychiatry
DX: F20.9 Schizophrenia, unspecified (principal); F17.200 Nicotine dependence, unspecified, uncomplicated; J44.9 Chronic obstructive pulmonary disease, unspecified; E78.00 Pure hypercholesterolemia, unspecified; D64.9 Anemia, unspecified; I10 Essential (primary) hypertension; F03.90 Unspecified dementia, unspecified severity, without behavioral disturbance, psychotic disturbance, mood disturbance, and anxiety; E78.5 Hyperlipidemia, unspecified; E11.9 Type 2 diabetes mellitus without complications; I25.10 Atherosclerotic heart disease of native coronary artery without angina pectoris; Z79.02 Long term (current) use of antithrombotics/antiplatelets; E55.9 Vitamin D deficiency, unspecified; Z91.19 Patient's noncompliance with other medical treatment and regimen; R79.89 Other specified abnormal findings of blood chemistry; Z91.14 Patient's other noncompliance with medication regimen; Z20.828 Contact with and (suspected) exposure to other viral communicable diseases
CPT/HCPCS: 83036; 84439; 84443; 86592; 87426; G0480

== ENCOUNTER 2021-04-27 09:24 | Emergency (ER) | payer MEDICARE, MEDICAID ==
[~2021-04-27] VITALS: Ht 147.3 cm; Wt 63.6 kg
[~2021-04-27 09:24] MED LIST changes: +ASPI-1450 PO; +ATOR40TA28 PO; +CLOP75TA60 PO; +ERGO500054 PO; +FURO20 PO; +LOSA25TA21 PO; +LURA80TA2 PO; +MIRT-89 PO; -MTV PO; +MULT-1239 PO; +OMEG-135 PO; +VALP250S23 PO; -VIT E PO; -[UNRECOGNIZED DRUG - REMARK] PO
[2021-04-27] MEDS ORDERED: KETOROLAC TROMETHAMINE 60 MG/2 ML VIAL IM ONE (10:15)
[2021-04-27] MEDS ORDERED: ACETAMINOPHEN 500 MG TABLET PO ONE (10:15)
[2021-04-27 10:57] VITALS: BP 144/74
== END 2021-04-27 10:58 | disposition home or self-care (01) ==
LOC: EMS 09:31
DX: S29.012A Strain of muscle and tendon of back wall of thorax, initial encounter (principal); F20.9 Schizophrenia, unspecified; F17.210 Nicotine dependence, cigarettes, uncomplicated; X58.XXXA Exposure to other specified factors, initial encounter; Y93.89 Activity, other specified; Y92.89 Other specified places as the place of occurrence of the external cause; Y99.8 Other external cause status
CPT/HCPCS: 96372; 99283; J1885